=== PATIENT | female | born 1995 | race African-American/Black ===

== ENCOUNTER 2017-08-04 22:04 | Emergency (ER) | payer OTHER ==
[~2017-08-04 22:04] MED LIST: DIVA250T84 PO; DIVA500T98 PO; FLUO-202 PO; MYCO500T28 PO; OXYC-865 PO; RISP0.5T82 PO
--- NOTE | 2017-08-04 23:57 | RADIOLOGY IMAGING REPORT ---
FACILITY: [facility] - [place] PATIENT NAME: Roberta Akbar : 1995 MR: [id number] V: [id number] EXAM DATE: ORDERING PHYSICIAN: BEREKET HAINES TECHNOLOGIST: Location: [facility] Patient: Roberta Akbar : 1995 Visit/Account:[id number] Date of Sevice: 08/04/2017 HIP RIGHT History: Injury COMPARISON: none. FINDINGS: 2 views are provided. No evidence of fracture. Joint spaces and alignment within normal swift its. Soft tissues are unremarkable. IMPRESSION: Negative study. Report Dictated By: Alexis Pascual MD at 08/04/2017 11:51 PM Report E-Signed By: Alexis Pascual MD at 08/04/2017 11:52 PM WSN:[id number]
--- NOTE | 2017-08-05 00:13 | ER Report ---
History and Physical Time Seen By MD: 22:30 Hx. of Stated Complaint: Patient reporting right hip pain related to tripping with crutches earlier today. Patient states that hip initially injured hip about a month ago. HPI/ROS 22 y/o female who says that she lives in [place] but is in town to help a family member move. She was seen in this emergency department approximately one month ago after straining her right knee. She states that she has since seen an orthopedic surgeon about her knee pain, and the surgeon has encouraged her to exercise and take tylenol for pain. She is allergic to NSAIDs. She has been using crutches. She states that earlier this evening she tripped over her crutches, fell onto her right hip, and now has right hip knee and right calf pain. She states that she took 4 extra strength Tylenol and the pain is the same. She is able to ambulate. Remainder of the 14 system rev: Yes Allergies: Coded Allergies: NSAIDS (Non-Steroidal Anti-Inflamma (Verified Allergy, Severe, "THROAT SWELLS UP", 07/13/17) egg (Verified Allergy, Severe, 07/13/17) influenza virus vaccine ts [id number] (36 mos,up) (Verified Allergy, Severe , "HIGH FEVER, SEIZURES", 07/13/17) ALL FLU VACINES, EGG ALLERGY banana (Verified Allergy, Intermediate, SWOLLEN TONGUE, 07/13/17) Home Meds Reported Medications Mycophenolate Mofetil (MYCOPHENOLATE MOFETIL) 500 Mg Tablet, 1000 MG PO BID 07/13/17 Divalproex Sodium (DEPAKOTE) 250 Mg Tablet.dr, 250 MG PO QAM, TAB 07/13/17 Divalproex Sodium (DEPAKOTE) 500 Mg Tablet.dr, 1000 MG PO QDAY, TAB 07/13/17 Fluoxetine Hcl (PROZAC) 20 Mg Capsule, 20 MG PO TID, CAPSULE 07/13/17 Risperidone (RISPERDAL) 0.5 Mg Tablet, 0.5 MG PO QDAY 07/13/17 Discontinued Scripts Oxycodone Hcl/Acetaminophen (PERCOCET 5-325 MG TABLET) 1 Each Tablet, 1 EACH PO Q4-6H Y for PAIN, #12 Prov:KATHERINE DEAN DO 07/13/17 Reviewed Nurses Notes: Yes Old Medical Records Reviewed: Yes Hx Smoking: Yes Smoking Status: Current: Every Day Smoker Hx Substance Use Disorder: Yes Hx Alcohol Use: Yes Constitutional Vital Sign - Last 24 Hours 08/04/17 08/05/17 22:11 00:15 Temp 98.2 Pulse 122 110 Resp 22 14 B/P (MAP) 146/113 140/90 (107) Pulse Ox 98 96 O2 Delivery Room Air Room Air Physical Exam General Appearance: The patient is alert, has no immediate need for airway protection and no current signs of toxicity. Eyes: Pupils equal and round no injection. Respiratory: Chest is non tender, lungs are clear to auscultation. Cardiac: regular rate and rhythm Musculoskeletal: Neck: Neck is supple and non tender. Extremities have full range of motion. No joint effusions. No abrasions, lacerations, or ecchymosis. TTP at the left medial LE. No ligamentous laxity. No swelling Skin: No rashes or lesions. DIFFERENTIAL DIAGNOSIS: After history and physical exam differential diagnosis was considered for fracture, DVT, dislocation, sprain/strain Medical Decision Making EKG/Imaging Imaging X-ray: right hip was obtained. I viewed the images myself on the PACS system. My interpretation of the images is:no fractures or dislocation. No soft tissue swelling. The radiologist interpretation had no clinically significant variation from this interpretation. ED Course/Re-evaluation ED Course This is an otherwise healthy 22-year-old female who presented to the emergency department after tripping over her crutches. She complained of right hip pain after the fall as well as pain in her right calf. She is able to ambulate with pain. She states that she had a ligament strain already, and is being followed by an orthopedist in [place]. She has a normal physical exam. No ligament laxity, no joint effusions, no ecchymosis or abrasions, and no swelling. She does report pain and tenderness to palpation at the soft tissue of her right lower extremity. She has no bony tenderness to palpation. She states that she is allergic to NSAIDs and also states that the Tylenol she took at home has not helped with her pain. I gave her an Lalo wrap for some support of her right knee and right calf. She is asking for something stronger than Tylenol for her pain. I told her that her type of injury did not require narcotic pain medicine, and instead I instructed her to take Tylenol 1 g TID for 5 days. She will continue with her crutches as needed. Decision to Disposition Date: Aug 05, 2017 Decision to Disposition Time: 00:11 Depart Departure Latest Vital Signs Vital Signs Date Time Temp Pulse Resp B/P (MAP) Pulse Ox O2 Delivery O2 Flow Rate FiO2 08/05/17 00:15 110 14 140/90 (107) 96 Room Air 08/04/17 22:11 98.2 Impression: Primary Impression: Muscle strain Condition: Improved Disposition: HOME OR SELF-CARE Patient Instructions: Muscle Strain (ED) Additional Instructions: TAKE 1000 MG OF TYLENOL 3 TIMES A DAY FOR 5 DAYS FOR PAIN. BEREKET HAINES MD Aug 05, 2017 00:13
[2017-08-05 00:15] VITALS: BP 140/90
== END 2017-08-05 00:21 | disposition home or self-care (01) ==
LOC: ER 22:26
DX: S86.911A Strain of unspecified muscle(s) and tendon(s) at lower leg level, right leg, initial encounter (principal)
CPT/HCPCS: 99281

== ENCOUNTER 2017-12-05 12:17 | Emergency (ER) | payer OTHER ==
[2017-12-05] MEDS ORDERED: APAP/HYDROCODONE 325/5 TAB PO ONE (12:25)
--- NOTE | 2017-12-05 12:43 | ER Report ---
History and Physical Time Seen By MD: 12:43 Hx. of Stated Complaint: PATIENT STARTED HAVING BACK PAIN AROUND WEDNESDAY; STATES THAT IT IS ALSO VAGINAL PAIN WELL HPI/ROS CHIEF COMPLAINT: Dysuria, bilateral kidney pain, dyspareunia HISTORY OF PRESENT ILLNESS: Patient is a 16-year-old female who presents emergency department with approximately 3 days now of dysuria and bilateral flank pain and episodes of dyspareunia she also notes some blood in her urine. Patient is not had this prior to . 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 The patient states it stings when she urinates or if she has a bowel movement. REVIEW OF SYSTEMS: Constitutional: No fever, no chills. Gastrointestinal: Bilateral flank pain Genitourinary: Dysuria, hematuria Skin: No rashes. Allergies: Coded Allergies: NSAIDS (Non-Steroidal Anti-Inflamma (Verified Allergy, Severe, "THROAT SWELLS UP", 12/05/17) egg (Verified Allergy, Severe, 12/05/17) influenza virus vaccine ts [id number] (36 mos,up) (Verified Allergy, Severe , "HIGH FEVER, SEIZURES", 12/05/17) ALL FLU VACINES, EGG ALLERGY banana (Verified Allergy, Intermediate, SWOLLEN TONGUE, 12/05/17) Home Meds Active Scripts Hydrocodone Bit/Acetaminophen (HYDROCODON-ACETAMINOPHEN 5-325) 1 Each Tablet, 1 EACH PO Q4-6H Y for PAIN, #12 TAB 0 Refills TAKE ONE TABLET BY MOUTH EVERY 4-6 HOURS NEEDED FOR PAIN Prov:ASHISH MCQUEEN MD 12/05/17 Doxycycline Hyclate (VIBRAMYCIN) 100 Mg Capsule, 100 MG PO BID, #14 CAPSULE Prov:ASHISH MCQUEEN MD 12/05/17 Reported Medications Mycophenolate Mofetil (MYCOPHENOLATE MOFETIL) 500 Mg Tablet, 1000 MG PO BID 07/13/17 Divalproex Sodium (DEPAKOTE) 250 Mg Tablet.dr, 250 MG PO QAM, TAB 07/13/17 Divalproex Sodium (DEPAKOTE) 500 Mg Tablet.dr, 1000 MG PO QDAY, TAB 07/13/17 Fluoxetine Hcl (PROZAC) 20 Mg Capsule, 20 MG PO TID, CAPSULE 07/13/17 Risperidone (RISPERDAL) 0.5 Mg Tablet, 0.5 MG PO QDAY 07/13/17 Past Medical/Surgical History Noncontributory towards this chief complaint Hx Smoking: Yes Smoking Status: Current: Every Day Smoker Hx Substance Use Disorder: Yes Hx Alcohol Use: Yes Constitutional Vital Sign - Last 24 Hours 12/05/17 12/05/17 12/05/17 12/05/17 12:23 12:23 12:30 13:07 Temp 98.0 Pulse 100 Resp 19 B/P (MAP) 144/96 144/96 (112) 127/88 (101) 142/93 (109) Pulse Ox 97 O2 Delivery Room Air Physical Exam General Appearance: The patient is alert, has no immediate need for airway protection and no current signs of toxicity. Respiratory: Chest is non tender, lungs are clear to auscultation. Cardiac: regular rate and rhythm Gastrointestinal: Abdomen is soft and non tender, no masses, bowel sounds normal. exam: Negative for rash. Patient with whitish discharge vaginally. Also some tenderness on internal exam. Skin: No rashes or lesions. Medical Decision Making Data Points Result Diagram: 12/05/17 1240 12/05/17 1240 Laboratory Hematology Test 12/05/17 12:24 12/05/17 12:40 12/05/17 13:06 Urine Color Yellow Urine Clarity Clear Urine pH 7.0 pH (4.8-9.5) Urine Specific [place] 1.015 Urine Protein Negative mg/dL (NEGATIVE) Urine Glucose (UA) Negative mg/dL (NEGATIVE) Urine Ketones Negative mg/dL (NEGATIVE) Urine Blood Negative (NEGATIVE) Urine Nitrite Negative (NEGATIVE) Urine Bilirubin Negative (NEGATIVE) Urine Urobilinogen Negative mg/dL (0.2-1.9) Urine Leukocyte Esterase Negative (NEGATIVE) Urine RBC None /HPF (0-2/HPF) Urine WBC <1 /HPF (0-5/HPF) Urine Squamous Epithelial Cells Many /LPF (</=FEW) Urine Bacteria Negative /HPF (NONE-FEW) Urine Mucus None /HPF (NONE-FEW) Urine HCG, Qualitative Negative (NEGATIVE) Red Blood Count 6.23 M/uL (4.17-5.56) Mean Corpuscular Volume 72.2 fL (80.0-96.0) Mean Corpuscular Hemoglobin 24.4 pg (26.0-33.0) Mean Corpuscular Hemoglobin Concent 33.8 g/dL (32.0-36.0) Red Cell Distribution Width 16.5 % (11.5-14.5) Mean Platelet Volume 8.9 fL (7.2-11.1) Neutrophils (%) (Auto) 68.2 % (39.4-72.5) Lymphocytes (%) (Auto) 21.3 % (17.6-49.6) Monocytes (%) (Auto) 7.5 % (4.1-12.4) Eosinophils (%) (Auto) 2.1 % (0.4-6.7) Basophils (%) (Auto) 0.9 % (0.3-1.4) Nucleated RBC Relative Count (auto) 0.2 /100WBC Neutrophils # (Auto) 6.8 K/uL (2.0-7.4) Lymphocytes # (Auto) 2.1 K/uL (1.3-3.6) Monocytes # (Auto) 0.7 K/uL (0.3-1.0) Eosinophils # (Auto) 0.2 K/uL (0.0-0.5) Basophils # (Auto) 0.1 K/uL (0.0-0.1) Nucleated RBC Absolute Count (auto) 0.02 K/uL Sodium Level 141 mmol/L (137-145) Potassium Level 4.2 mmol/L (3.5-5.0) Chloride Level 104 mmol/L (98-107) Carbon Dioxide Level 24 mmol/L (22-31) Blood Urea Nitrogen 15 mg/dl (7-18) Creatinine 0.80 mg/dl (0.52-1.04) Glomerular Filtration Rate Calc > 60.0 Random Glucose 96 mg/dl (75-110) Calcium Level 10.3 mg/dl (8.4-10.2) Chemistry Test 12/05/17 12:24 12/05/17 12:40 12/05/17 13:06 Urine Color Yellow Urine Clarity Clear Urine pH 7.0 pH (4.8-9.5) Urine Specific [place] 1.015 Urine Protein Negative mg/dL (NEGATIVE) Urine Glucose (UA) Negative mg/dL (NEGATIVE) Urine Ketones Negative mg/dL (NEGATIVE) Urine Blood Negative (NEGATIVE) Urine Nitrite Negative (NEGATIVE) Urine Bilirubin Negative (NEGATIVE) Urine Urobilinogen Negative mg/dL (0.2-1.9) Urine Leukocyte Esterase Negative (NEGATIVE) Urine RBC None /HPF (0-2/HPF) Urine WBC <1 /HPF (0-5/HPF) Urine Squamous Epithelial Cells Many /LPF (</=FEW) Urine Bacteria Negative /HPF (NONE-FEW) Urine Mucus None /HPF (NONE-FEW) Urine HCG, Qualitative Negative (NEGATIVE) White Blood Count 9.9 k/uL (4.5-11.0) Red Blood Count 6.23 M/uL (4.17-5.56) Hemoglobin 15.2 g/dL (12.0-16.0) Hematocrit 45.0 % (34.0-47.0) Mean Corpuscular Volume 72.2 fL (80.0-96.0) Mean Corpuscular Hemoglobin 24.4 pg (26.0-33.0) Mean Corpuscular Hemoglobin Concent 33.8 g/dL (32.0-36.0) Red Cell Distribution Width 16.5 % (11.5-14.5) Platelet Count 252 K/uL (150-450) Mean Platelet Volume 8.9 fL (7.2-11.1) Neutrophils (%) (Auto) 68.2 % (39.4-72.5) Lymphocytes (%) (Auto) 21.3 % (17.6-49.6) Monocytes (%) (Auto) 7.5 % (4.1-12.4) Eosinophils (%) (Auto) 2.1 % (0.4-6.7) Basophils (%) (Auto) 0.9 % (0.3-1.4) Nucleated RBC Relative Count (auto) 0.2 /100WBC Neutrophils # (Auto) 6.8 K/uL (2.0-7.4) Lymphocytes # (Auto) 2.1 K/uL (1.3-3.6) Monocytes # (Auto) 0.7 K/uL (0.3-1.0) Eosinophils # (Auto) 0.2 K/uL (0.0-0.5) Basophils # (Auto) 0.1 K/uL (0.0-0.1) Nucleated RBC Absolute Count (auto) 0.02 K/uL Glomerular Filtration Rate Calc > 60.0 Calcium Level 10.3 mg/dl (8.4-10.2) Urinalysis Test 12/05/17 12:24 Urine Color Yellow Urine Clarity Clear Urine pH 7.0 pH (4.8-9.5) Urine Specific [place] 1.015 Urine Protein Negative mg/dL (NEGATIVE) Urine Glucose (UA) Negative mg/dL (NEGATIVE) Urine Ketones Negative mg/dL (NEGATIVE) Urine Blood Negative (NEGATIVE) Urine Nitrite Negative (NEGATIVE) Urine Bilirubin Negative (NEGATIVE) Urine Urobilinogen Negative mg/dL (0.2-1.9) Urine Leukocyte Esterase Negative (NEGATIVE) Urine RBC None /HPF (0-2/HPF) Urine WBC <1 /HPF (0-5/HPF) Urine Squamous Epithelial Cells Many /LPF (</=FEW) Urine Bacteria Negative /HPF (NONE-FEW) Urine Mucus None /HPF (NONE-FEW) Urine HCG, Qualitative Negative (NEGATIVE) ED Course/Re-evaluation ED Course 12/05/2017 1:00:32 pm plan at this time will be to place an IV we will give IV pain medication check CBC electrolytes and perform a pelvic exam. Decision to Disposition Date: December 05, 2017 Decision to Disposition Time: 14:09 Depart Departure Latest Vital Signs Vital Signs Date Time Temp Pulse Resp B/P (MAP) Pulse Ox O2 Delivery O2 Flow Rate FiO2 12/05/17 13:07 142/93 (109) 12/05/17 12:23 98.0 100 19 97 Room Air Impression: Primary Impression: Cervicitis Condition: Improved Disposition: HOME OR SELF-CARE New Scripts Hydrocodone Bit/Acetaminophen (HYDROCODON-ACETAMINOPHEN 5-325) 1 Each Tablet 1 EACH PO Q4-6H Y for PAIN, #12 TAB 0 Refills TAKE ONE TABLET BY MOUTH EVERY 4-6 HOURS NEEDED FOR PAIN Prov: ASHISH MCQUEEN MD 12/05/17 Doxycycline Hyclate (VIBRAMYCIN) 100 Mg Capsule 100 MG PO BID, #14 CAPSULE Prov: ASHISH MCQUEEN MD 12/05/17 Patient Instructions: Cervicitis (DC) Additional Instructions: Follow-up with your [facility] in [place] is scheduled on Wednesday. Take your antibiotics as directed. ASHISH MCQUEEN MD December 05, 2017 12:43
[2017-12-05 12:56] LABS: PLATELET COUNT, AUTOMATED 252 K/uL (150-450)
[2017-12-05] MEDS ORDERED: fentaNYL CITR 100 MCG/2 ML AMP IVP ONE (13:05)
[2017-12-05 13:07] VITALS: BP 142/93
[2017-12-05] MEDS ORDERED: DOXY-1 PO (13:12)
[2017-12-05] MEDS ORDERED: LOR5/325 PO (13:12)
[2017-12-05] MEDS ORDERED: cefTRIAXone 250 MG VIAL IVP ONE (13:15)
== END 2017-12-05 13:44 | disposition home or self-care (01) ==
LOC: ER 12:25
DX: N72 Inflammatory disease of cervix uteri (principal)
CPT/HCPCS: 81001; 81025; 85025; 87088; 87491; 87591; 96374; 96375; 99283; J0696; J3010; 82310; 82374; 82435; 82565; 82947; 84132; 84295; 84520

== ENCOUNTER 2018-01-20 12:59 | Emergency (ER) | payer OTHER ==
[~2018-01-20 12:59] MED LIST changes: +DOXY-1 PO; +LOR5/325 PO
--- NOTE | 2018-01-20 13:13 | ER Report ---
History and Physical Time Seen By MD: 13:13 Hx. of Stated Complaint: patient reports right lower abdominal pain and bilateral flank pain for the last 3 days HPI/ROS Chief Complaint: "abdominal and back pain" HPI: 22-year-old presents with her fiance. The patient is the primary historian. The patient reports, constant abdominal pain that radiates posteriorly on the right side and describes this pain as "kidney pain." She has had associated nausea for four days and decreased appetite. Heating pad and Tylenol has not improved the pain. ROS: Constitutional: denies fevers, night sweats or chills HEENT: denies headache, change in vision, denies cough or sore throat Respiratory: denies difficulty breathing CV: denies chest pain GI/: reports right lower quadrant pain, reports right, posterior, thoracic pain Allergies: Coded Allergies: NSAIDS (Non-Steroidal Anti-Inflamma (Verified Allergy, Severe, "THROAT SWELLS UP", 12/05/17) egg (Verified Allergy, Severe, 12/05/17) influenza virus vaccine ts [id number] (36 mos,up) (Verified Allergy, Severe , "HIGH FEVER, SEIZURES", 12/05/17) ALL FLU VACINES, EGG ALLERGY banana (Verified Allergy, Intermediate, SWOLLEN TONGUE, 12/05/17) Home Meds Active Scripts Hydrocodone Bit/Acetaminophen (HYDROCODON-ACETAMINOPHEN 5-325) 1 Each Tablet, 1 EACH PO Q4-6H Y for PAIN for 3 Days, #10 TAB Prov:ISACC RIVERA [facility] 01/20/18 Ondansetron (ZOFRAN ODT) 4 Mg Tab.rapdis, 4 MG PO Q6H Y for NAUSEA/VOMITING for 5 Days, #20 TAB.BRITTANY Prov:ISACC RIVERA [facility] 01/20/18 Reported Medications Mycophenolate Mofetil (MYCOPHENOLATE MOFETIL) 500 Mg Tablet, 1000 MG PO BID 07/13/17 Divalproex Sodium (DEPAKOTE) 250 Mg Tablet.dr, 250 MG PO QAM, TAB 07/13/17 Divalproex Sodium (DEPAKOTE) 500 Mg Tablet.dr, 1000 MG PO QDAY, TAB 07/13/17 Fluoxetine Hcl (PROZAC) 20 Mg Capsule, 20 MG PO TID, CAPSULE 07/13/17 Risperidone (RISPERDAL) 0.5 Mg Tablet, 0.5 MG PO QDAY 07/13/17 Discontinued Scripts Hydrocodone Bit/Acetaminophen (HYDROCODON-ACETAMINOPHEN 5-325) 1 Each Tablet, 1 EACH PO Q4-6H Y for PAIN, #12 TAB 0 Refills TAKE ONE TABLET BY MOUTH EVERY 4-6 HOURS NEEDED FOR PAIN Prov:ASHISH MCQUEEN MD 12/05/17 Doxycycline Hyclate (VIBRAMYCIN) 100 Mg Capsule, 100 MG PO BID, #14 CAPSULE Prov:ASHISH MCQUEEN MD 12/05/17 Past Medical/Surgical History fibromyalgia, scoliosis, vaginal delivery, laparoscopic cholecystectomy, laparoscopic oophorectomy, transvaginal hysterectomy Hx Smoking: Yes Smoking Status: Current: Every Day Smoker Hx Substance Use Disorder: Yes Hx Alcohol Use: Yes Constitutional Vital Sign - Last 24 Hours 01/20/18 01/20/18 01/20/18 01/20/18 13:04 13:06 13:29 13:40 Temp 97.3 Pulse 106 105 Resp 20 B/P (MAP) 143/103 143/103 (116) 121/99 (106) Pulse Ox 95 96 O2 Delivery Room Air 01/20/18 01/20/18 01/20/18 01/20/18 14:06 14:29 14:30 14:35 Pulse 103 101 B/P (MAP) 137/83 (101) 118/94 (102) Pulse Ox 96 93 01/20/18 01/20/18 01/20/18 01/20/18 14:49 15:00 15:05 15:26 Pulse 108 B/P (MAP) 126/82 (97) 124/84 (97) 130/83 (99) Pulse Ox 96 Intake and Output 01/20/18 01/20/18 01/21/18 15:00 23:00 07:00 Intake Total 1000 ml Balance 1000 ml Physical Exam General: 22-year-old female in no acute distress HEENT: normocephalic, atraumatic Respiratory: BL equal respiratory excursion, CTA BL CV: PMI in left sternal boarder, Clear S1 S2, no murmurs GI/: normoactive BS x 4, right lower quadrant pain on palpation, no CVA tenderness Musculoskeletal: moves all extremities Neuro: alert and oriented x 4, interactive Differential diagnoses: UTI, pyelonephritis, appendicitis, diverticulitis, gastroenteritis Medical Decision Making Data Points Result Diagram: 01/20/18 1324 01/20/18 1324 Laboratory Hematology Test 01/20/18 13:03 01/20/18 13:24 Urine Color Yellow Urine Clarity Clear Urine pH 7.0 pH (4.8-9.5) Urine Specific [place] 1.019 Urine Protein Negative mg/dL (NEGATIVE) Urine Glucose (UA) Negative mg/dL (NEGATIVE) Urine Ketones Negative mg/dL (NEGATIVE) Urine Blood Negative (NEGATIVE) Urine Nitrite Negative (NEGATIVE) Urine Bilirubin Negative (NEGATIVE) Urine Urobilinogen 2.0 mg/dL (0.2-1.9) Urine Leukocyte Esterase Negative (NEGATIVE) Urine RBC None /HPF (0-2/HPF) Urine WBC <1 /HPF (0-5/HPF) Urine Squamous Epithelial Cells Moderate /LPF (</=FEW) Urine Bacteria Negative /HPF (NONE-FEW) Urine Mucus None /HPF (NONE-FEW) Red Blood Count 6.64 M/uL (4.17-5.56) Mean Corpuscular Volume 71.2 fL (80.0-96.0) Mean Corpuscular Hemoglobin 23.8 pg (26.0-33.0) Mean Corpuscular Hemoglobin Concent 33.5 g/dL (32.0-36.0) Red Cell Distribution Width 17.1 % (11.5-14.5) Mean Platelet Volume 8.6 fL (7.2-11.1) Neutrophils (%) (Auto) 71.8 % (39.4-72.5) Lymphocytes (%) (Auto) 17.8 % (17.6-49.6) Monocytes (%) (Auto) 8.0 % (4.1-12.4) Eosinophils (%) (Auto) 2.1 % (0.4-6.7) Basophils (%) (Auto) 0.3 % (0.3-1.4) Nucleated RBC Relative Count (auto) 0.1 /100WBC Neutrophils # (Auto) 9.1 K/uL (2.0-7.4) Lymphocytes # (Auto) 2.3 K/uL (1.3-3.6) Monocytes # (Auto) 1.0 K/uL (0.3-1.0) Eosinophils # (Auto) 0.3 K/uL (0.0-0.5) Basophils # (Auto) 0.0 K/uL (0.0-0.1) Nucleated RBC Absolute Count (auto) 0.01 K/uL Peripheral Blood Smear Y/N Sodium Level 141 mmol/L (137-145) Potassium Level 3.8 mmol/L (3.5-5.0) Chloride Level 103 mmol/L (98-107) Carbon Dioxide Level 26 mmol/L (22-31) Blood Urea Nitrogen 14 mg/dl (7-18) Creatinine 0.90 mg/dl (0.52-1.04) Glomerular Filtration Rate Calc > 60.0 Random Glucose 96 mg/dl (75-110) Calcium Level 9.8 mg/dl (8.4-10.2) Total Bilirubin 0.5 mg/dl (0.2-1.3) Aspartate Amino Transf (AST/SGOT) 43 U/L (0-35) Alanine Aminotransferase (ALT/SGPT) 20 U/L (0-56) Alkaline Phosphatase 69 U/L (0-126) Total Protein 8.0 g/dl (6.3-8.2) Albumin 4.6 g/dl (3.5-5.0) Chemistry Test 01/20/18 13:03 01/20/18 13:24 Urine Color Yellow Urine Clarity Clear Urine pH 7.0 pH (4.8-9.5) Urine Specific [place] 1.019 Urine Protein Negative mg/dL (NEGATIVE) Urine Glucose (UA) Negative mg/dL (NEGATIVE) Urine Ketones Negative mg/dL (NEGATIVE) Urine Blood Negative (NEGATIVE) Urine Nitrite Negative (NEGATIVE) Urine Bilirubin Negative (NEGATIVE) Urine Urobilinogen 2.0 mg/dL (0.2-1.9) Urine Leukocyte Esterase Negative (NEGATIVE) Urine RBC None /HPF (0-2/HPF) Urine WBC <1 /HPF (0-5/HPF) Urine Squamous Epithelial Cells Moderate /LPF (</=FEW) Urine Bacteria Negative /HPF (NONE-FEW) Urine Mucus None /HPF (NONE-FEW) White Blood Count 12.7 k/uL (4.5-11.0) Red Blood Count 6.64 M/uL (4.17-5.56) Hemoglobin 15.8 g/dL (12.0-16.0) Hematocrit 47.3 % (34.0-47.0) Mean Corpuscular Volume 71.2 fL (80.0-96.0) Mean Corpuscular Hemoglobin 23.8 pg (26.0-33.0) Mean Corpuscular Hemoglobin Concent 33.5 g/dL (32.0-36.0) Red Cell Distribution Width 17.1 % (11.5-14.5) Platelet Count 247 K/uL (150-450) Mean Platelet Volume 8.6 fL (7.2-11.1) Neutrophils (%) (Auto) 71.8 % (39.4-72.5) Lymphocytes (%) (Auto) 17.8 % (17.6-49.6) Monocytes (%) (Auto) 8.0 % (4.1-12.4) Eosinophils (%) (Auto) 2.1 % (0.4-6.7) Basophils (%) (Auto) 0.3 % (0.3-1.4) Nucleated RBC Relative Count (auto) 0.1 /100WBC Neutrophils # (Auto) 9.1 K/uL (2.0-7.4) Lymphocytes # (Auto) 2.3 K/uL (1.3-3.6) Monocytes # (Auto) 1.0 K/uL (0.3-1.0) Eosinophils # (Auto) 0.3 K/uL (0.0-0.5) Basophils # (Auto) 0.0 K/uL (0.0-0.1) Nucleated RBC Absolute Count (auto) 0.01 K/uL Peripheral Blood Smear Y/N Glomerular Filtration Rate Calc > 60.0 Calcium Level 9.8 mg/dl (8.4-10.2) Total Bilirubin 0.5 mg/dl (0.2-1.3) Aspartate Amino Transf (AST/SGOT) 43 U/L (0-35) Alanine Aminotransferase (ALT/SGPT) 20 U/L (0-56) Alkaline Phosphatase 69 U/L (0-126) Total Protein 8.0 g/dl (6.3-8.2) Albumin 4.6 g/dl (3.5-5.0) Urinalysis Test 01/20/18 13:03 Urine Color Yellow Urine Clarity Clear Urine pH 7.0 pH (4.8-9.5) Urine Specific [place] 1.019 Urine Protein Negative mg/dL (NEGATIVE) Urine Glucose (UA) Negative mg/dL (NEGATIVE) Urine Ketones Negative mg/dL (NEGATIVE) Urine Blood Negative (NEGATIVE) Urine Nitrite Negative (NEGATIVE) Urine Bilirubin Negative (NEGATIVE) Urine Urobilinogen 2.0 mg/dL (0.2-1.9) Urine Leukocyte Esterase Negative (NEGATIVE) Urine RBC None /HPF (0-2/HPF) Urine WBC <1 /HPF (0-5/HPF) Urine Squamous Epithelial Cells Moderate /LPF (</=FEW) Urine Bacteria Negative /HPF (NONE-FEW) Urine Mucus None /HPF (NONE-FEW) EKG/Imaging Imaging CT abdomen and pelvis with IV contrast Indication: Right sided abdomen pain Comparison: None.. Technique: Axial CT images were obtained through the abdomen and pelvis during injection of nonionic iodinated intravenous contrast. Reformatted coronal and sagittal images were also obtained. One of the following dose optimization techniques was utilized in the performance of this exam: Automated exposure control; adjustment of the mA and/ or kV according to the patient's size; or use of an iterative reconstruction technique. Specific details can be referenced in the facility's radiology CT exam operational policy. Contrast: 80 ml of Isovue-370 IV contrast. Findings: Lower lung pike: Limited views lower lung field are unremarkable. Liver: No focal parenchymal abnormality of the liver. Biliary: Status post cholecystectomy. The biliary system is unremarkable. Pancreas: Normal appearance. Spleen: Normal appearance. Adrenal glands: Unremarkable. Kidneys / retroperitoneum: No evidence of nephrolithiasis or hydronephrosis. No focal abnormality. Bowel / peritoneum / mesenteries: The colon shows no focal abnormality. The appendix is normal. Small bowel shows no focal abnormality or obstruction. The stomach is mainly decompressed and grossly normal. No free air, free fluid, fluid collections or areas of inflammation. Small umbilical hernia containing fat. Lymph node assessment: No pathologic adenopathy identified. Pelvic structures: The uterus is not visualized and may have been surgically removed. The remaining pelvic structures visualized within normal limits. Vessels: No significant atherosclerotic calcifications seen throughout a nonaneurysmal abdominal aorta and branches. Musculoskeletal / Body wall: No acute or aggressive osseous abnormality. There are couple bone islands scattered throughout the bony pelvis. 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 IMPRESSION: 1. No acute intra-abdominal abnormality 2. 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 Report Dictated By: Justo Rendon at 01/20/2018 2:36 PM Report E-Signed By: Justo eRndon at 01/20/2018 2:42 PM ED Course/Re-evaluation ED Course 22-year-old female presents to the emergency department with right lower quadrant pain that radiates posteriorly. She reports the pain as "kidney pain" on the right side. History and physical examination were obtained. The patient states she has been very nauseous and has no appetite and her pain is a 9.5 out of 10. 1000mls of NS, morphine, and Zofran administered in the ER today. CBC, CMP, UA, and CT of the abdomen were obtained. The laboratory findings and CT of the abdomen do not identify a clear etiology of her pain. She does have some mildly elevated liver enzymes and she has been encouraged to follow up with her primary care provider for further evaluation. At this time, we will treat her symptoms of nausea and pain and have her follow up with her primary care provider by Wednesday. Decision to Disposition Date: Jan 20, 2018 Decision to Disposition Time: 15:35 Depart Departure Latest Vital Signs Vital Signs Date Time Temp Pulse Resp B/P (MAP) Pulse Ox O2 Delivery O2 Flow Rate FiO2 01/20/18 15:26 130/83 (99) 01/20/18 15:05 108 96 01/20/18 13:04 97.3 20 Room Air Impression: Primary Impression: Abdominal pain Condition: Improved Disposition: HOME OR SELF-CARE New Scripts Hydrocodone Bit/Acetaminophen (HYDROCODON-ACETAMINOPHEN 5-325) 1 Each Tablet 1 EACH PO Q4-6H Y for PAIN for 3 Days, #10 TAB Prov: ISACC RIVERA 01/20/18 Ondansetron (ZOFRAN ODT) 4 Mg Tab.rapdis 4 MG PO Q6H Y for NAUSEA/VOMITING for 5 Days, #20 TAB.BRITTANY Prov: ISACC RIVERA 01/20/18 Patient Instructions: Abdominal Pain (ED) Additional Instructions: You make take Zofran for nausea and Tylenol as needed for pain but avoid taken more than 4 grams per day of Tylenol. Take hydrocodone for severe pain as needed every 6 hours. Follow up with your primary care provider within the week. Return to the Emergency Department if your condition worsens. Problem Qualifiers Primary Impression: Abdominal pain Abdominal location: right lower quadrant Qualified Codes: R10.31 - Right lower quadrant pain ISACC RIVERA Jan 20, 2018 13:13
[2018-01-20] MEDS ORDERED: ONDANSETRON 4 MG/2 ML VIAL IVP ONE (13:30)
[2018-01-20] MEDS ORDERED: NS(*) 0.9% 1000 ML BAG 1,000 ML IV ONE (13:30)
[2018-01-20 13:41] LABS: PLATELET COUNT, AUTOMATED 247 K/uL (150-450)
[2018-01-20] MEDS ORDERED: MORPHINE 4 MG/ML SDV IVP ONE (13:45)
[2018-01-20] MEDS ORDERED: IOPAMIDOL 76% 100 ML INFUS BTL 100 ML ONE (13:46)
--- NOTE | 2018-01-20 15:23 | RADIOLOGY IMAGING REPORT ---
FACILITY: [facility] PATIENT NAME: Roberta Akbar : 1995 MR: [id number] V: [id number] EXAM DATE: ORDERING PHYSICIAN: ISACC RIVERA TECHNOLOGIST: Location: [facility] [place] Patient: Roberta Akbar : 1995 Visit/Account:[id number] Date of Sevice: 01/20/2018 CT abdomen and pelvis with IV contrast Indication: Right sided abdomen pain Comparison: None.. Technique: Axial CT images were obtained through the abdomen and pelvis during injection of nonioni c iodinated intravenous contrast. Reformatted coronal and sagittal images were also obtained. One of the following dose optimization techniques was utilized in the performance of this exam: Autom ated exposure control; adjustment of the mA and/or kV according to the patient's size; or use of an i terative reconstruction technique. Specific details can be referenced in the facility's radiology C T exam operational policy. Contrast: 80 ml of Isovue-370 IV contrast. Findings: Lower lung pike: Limited views lower lung field are unremarkable. Liver: No focal parenchymal abnormality of the liver. Biliary: Status post cholecystectomy. The biliary system is unremarkable. Pancreas: Normal appearance. Spleen: Normal appearance. Adrenal glands: Unremarkable. Kidneys / retroperitoneum: No evidence of nephrolithiasis or hydronephrosis. No focal abnormality. Bowel / peritoneum / mesenteries: The colon shows no focal abnormality. The appendix is normal. Small bowel shows no focal abnormality or obstruction. The stomach is mainly decompressed and grossly norm al. No free air, free fluid, fluid collections or areas of inflammation. Small umbilical hernia containin g fat. Lymph node assessment: No pathologic adenopathy identified. Pelvic structures: The uterus is not visualized and may have been surgically removed. The remainin g pelvic structures visualized within normal limits. Vessels: No significant atherosclerotic calcifications seen throughout a nonaneurysmal abdominal aort a and branches. Musculoskeletal / Body wall: No acute or aggressive osseous abnormality. There are couple bone island s scattered throughout the bony pelvis. 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 IMPRESSION: 1. No acute intra-abdominal abnormality 2. 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 Report Dictated By: Justo Rendon at 01/20/2018 2:36 PM Report E-Signed By: Justo Rendon at 01/20/2018 2:42 PM WSN:[id number]
[2018-01-20] MEDS ORDERED: HYDR-385 PO (15:25)
[2018-01-20] MEDS ORDERED: ONDA4TAB PO (15:25)
[2018-01-20 15:26] VITALS: BP 130/83
== END 2018-01-20 15:46 | disposition home or self-care (01) ==
LOC: ER 13:00
DX: R10.31 Right lower quadrant pain (principal)
CPT/HCPCS: 74177; 81001; 85025; 96361; 96374; 96375; 99284; J2270; J2405; J7030; Q9967; 82040; 82247; 82310; 82374; 82435; 82565; 82947; 84075; 84132; 84155; 84295; 84450; 84460; 84520; 99283

== ENCOUNTER 2018-01-28 15:58 | Emergency (ER) | payer OTHER ==
[~2018-01-28 15:58] MED LIST changes: +HYDR-385 PO; +ONDA4TAB PO
[2018-01-28] MEDS ORDERED: FAMOTIDINE(*) 20MG/50ML PREMIX 50 ML IVPB ONE (16:11)
[2018-01-28] MEDS ORDERED: NS(*) 0.9% 1000 ML BAG 1,000 ML IV ONE (16:11)
[2018-01-28] MEDS ORDERED: SUCR1TAB85 PO (16:11)
[2018-01-28] MEDS ORDERED: OMEP-125 PO (16:12)
[2018-01-28] MEDS ORDERED: ONDANSETRON 4 MG/2 ML VIAL IVP ONE (16:15)
[2018-01-28 17:19] LABS: PLATELET COUNT, AUTOMATED 185 K/uL (150-450)
[2018-01-28] MEDS ORDERED: ACETAMINOPHEN 325 MG TAB PO ONE (17:50)
[2018-01-28] MEDS ORDERED: ONDA4TAB PO (18:04)
--- NOTE | 2018-01-28 18:06 | ER Report ---
History and Physical Time Seen By MD: 16:05 Hx. of Stated Complaint: PT IS HAVING RIGHT SIDED ABDOMINAL PAIN THAT RADIATE DOWN. PT WAS AT [facility] YESTERDAY, WAS TOLD SHE HAS ULCERS WAS PRESCRIBED CARAFATE AND TOLD TO INCREASE HER ANTIACID. PT STARTED VOMMITING TODAY AND DECIDED TO COME INTO THE ER. HPI/ROS CHIEF COMPLAINT: Abdominal pain HISTORY OF PRESENT ILLNESS: Patient is a 22-year-old female who presents the ED with complaint of epigastric pain that she has had for the past 3-4 weeks. She states that she was seen at this emergency department last week for this and was given some pain medication. She states that she was seen at the [facility] emergency department yesterday and was given Pepcid and Carafate. She states that she was set up to see gastroenterology as well. She states she has been having trouble keeping her Pepcid and Carafate down due to her nausea. She denies any diarrhea. She has not noted any fever. She states that she has a history of gastric ulcers in the past and is concerned about this. She did have an abdominal pelvis CT completed at her emergency room visit last week at this emergency Department. This did not reveal any acute findings. REVIEW OF SYSTEMS: Constitutional: No fever, no chills. Cardiovascular: No chest pain, no palpitations. Respiratory: No cough, no shortness of breath. Gastrointestinal: See history of present illness. Genitourinary: No hematuria. Musculoskeletal: No back pain. Skin: No rashes. Neurological: No headache. Allergies: Coded Allergies: NSAIDS (Non-Steroidal Anti-Inflamma (Verified Allergy, Severe, "THROAT SWELLS UP", 12/05/17) egg (Verified Allergy, Severe, 12/05/17) influenza virus vaccine ts [id number] (36 mos,up) (Verified Allergy, Severe , "HIGH FEVER, SEIZURES", 12/05/17) ALL FLU VACINES, EGG ALLERGY banana (Verified Allergy, Intermediate, SWOLLEN TONGUE, 12/05/17) Home Meds Active Scripts Ondansetron (ZOFRAN ODT) 4 Mg Tab.rapdis, 4 MG PO Q6H Y for NAUSEA/VOMITING, # 12 TAB.BRITTANY Prov:LICO ESQUEDA PA-C 01/28/18 Hydrocodone Bit/Acetaminophen (HYDROCODON-ACETAMINOPHEN 5-325) 1 Each Tablet, 1 EACH PO Q4-6H Y for PAIN for 3 Days, #10 TAB Prov:ISACC RIVERA [employer] 01/20/18 Ondansetron (ZOFRAN ODT) 4 Mg Tab.rapdis, 4 MG PO Q6H Y for NAUSEA/VOMITING for 5 Days, #20 TAB.BRITTANY Prov:ISACC RIVERA [employer] 01/20/18 Reported Medications Omeprazole (OMEPRAZOLE) 20 Mg Capsule.dr, 1 CAP PO BID, CAP 01/28/18 Sucralfate (CARAFATE) 1 Gm Tablet, 1 GM PO TID 01/28/18 Mycophenolate Mofetil (MYCOPHENOLATE MOFETIL) 500 Mg Tablet, 1000 MG PO BID 07/13/17 Divalproex Sodium (DEPAKOTE) 250 Mg Tablet.dr, 250 MG PO QAM, TAB 07/13/17 Divalproex Sodium (DEPAKOTE) 500 Mg Tablet.dr, 1000 MG PO QDAY, TAB 07/13/17 Fluoxetine Hcl (PROZAC) 20 Mg Capsule, 20 MG PO TID, CAPSULE 07/13/17 Risperidone (RISPERDAL) 0.5 Mg Tablet, 0.5 MG PO QDAY 07/13/17 Reviewed Nurses Notes: Yes Old Medical Records Reviewed: Yes Hx Smoking: Yes Smoking Status: Current: Every Day Smoker Hx Substance Use Disorder: Yes Hx Alcohol Use: Yes Constitutional Vital Sign - Last 24 Hours 01/28/18 01/28/18 01/28/18 01/28/18 16:03 18:16 18:47 20:01 Temp 97.8 98.0 Pulse 120 110 101 101 Resp 18 18 16 B/P (MAP) 141/87 124/83 (97) 106/62 (77) 123/85 (98) Pulse Ox 94 95 96 O2 Delivery Room Air Room Air Room Air Intake and Output 01/28/18 01/28/18 01/29/18 15:00 23:00 07:00 Intake Total 1050 ml Balance 1050 ml Physical Exam General Appearance: The patient is alert, has no immediate need for airway protection and no signs of toxicity. Patient appears to be in no acute distress. Eyes: Pupils equal and round no pallor or injection. ENT, Mouth: Mucous membranes are moist. Respiratory: There are no retractions, lungs are clear to auscultation. Cardiovascular: Regular rate and rhythm. Gastrointestinal: There is some epigastric tenderness with palpation. Normal bowel sounds in all 4 quadrants. No rebound or guarding is present. Skin: Warm and dry, no rashes. Musculoskeletal: Neck is supple non tender. Extremities are nontender, nonswollen and have full range of motion. DIFFERENTIAL DIAGNOSIS: After history and physical exam differential diagnosis was considered for abdominal pain including but not limited to appendicitis, cholecystitis, gastritis and urinary tract infection. Medical Decision Making Data Points Result Diagram: 01/28/18 1713 01/28/18 1713 Laboratory Hematology Test 01/28/18 16:04 01/28/18 17:13 Urine Color Yellow Urine Clarity Clear Urine pH 6.0 pH (4.8-9.5) Urine Specific [place] 1.023 Urine Protein Negative mg/dL (NEGATIVE) Urine Glucose (UA) Negative mg/dL (NEGATIVE) Urine Ketones Negative mg/dL (NEGATIVE) Urine Blood Negative (NEGATIVE) Urine Nitrite Negative (NEGATIVE) Urine Bilirubin Negative (NEGATIVE) Urine Urobilinogen Negative mg/dL (0.2-1.9) Urine Leukocyte Esterase Negative (NEGATIVE) Urine RBC None /HPF (0-2/HPF) Urine WBC <1 /HPF (0-5/HPF) Urine Squamous Epithelial Cells Many /LPF (</=FEW) Urine Bacteria Negative /HPF (NONE-FEW) Urine Mucus Few /HPF (NONE-FEW) Red Blood Count 6.37 M/uL (4.17-5.56) Mean Corpuscular Volume 72.0 fL (80.0-96.0) Mean Corpuscular Hemoglobin 24.1 pg (26.0-33.0) Mean Corpuscular Hemoglobin Concent 33.5 g/dL (32.0-36.0) Red Cell Distribution Width 17.6 % (11.5-14.5) Mean Platelet Volume 9.1 fL (7.2-11.1) Neutrophils (%) (Auto) 72.2 % (39.4-72.5) Lymphocytes (%) (Auto) 15.7 % (17.6-49.6) Monocytes (%) (Auto) 9.4 % (4.1-12.4) Eosinophils (%) (Auto) 1.6 % (0.4-6.7) Basophils (%) (Auto) 1.1 % (0.3-1.4) Nucleated RBC Relative Count (auto) 0.1 /100WBC Neutrophils # (Auto) 8.8 K/uL (2.0-7.4) Lymphocytes # (Auto) 1.9 K/uL (1.3-3.6) Monocytes # (Auto) 1.1 K/uL (0.3-1.0) Eosinophils # (Auto) 0.2 K/uL (0.0-0.5) Basophils # (Auto) 0.1 K/uL (0.0-0.1) Nucleated RBC Absolute Count (auto) 0.01 K/uL Peripheral Blood Smear Y/N Sodium Level 141 mmol/L (137-145) Potassium Level 4.1 mmol/L (3.5-5.0) Chloride Level 105 mmol/L (98-107) Carbon Dioxide Level 25 mmol/L (22-31) Blood Urea Nitrogen 14 mg/dl (7-18) Creatinine 0.80 mg/dl (0.52-1.04) Glomerular Filtration Rate Calc > 60.0 Random Glucose 82 mg/dl (75-110) Calcium Level 9.4 mg/dl (8.4-10.2) Total Bilirubin 0.4 mg/dl (0.2-1.3) Aspartate Amino Transf (AST/SGOT) 18 U/L (0-35) Alanine Aminotransferase (ALT/SGPT) 27 U/L (0-56) Alkaline Phosphatase 52 U/L (0-126) Total Protein 7.4 g/dl (6.3-8.2) Albumin 4.1 g/dl (3.5-5.0) Lipase 56 U/L (23-300) Chemistry Test 01/28/18 16:04 01/28/18 17:13 Urine Color Yellow Urine Clarity Clear Urine pH 6.0 pH (4.8-9.5) Urine Specific [place] 1.023 Urine Protein Negative mg/dL (NEGATIVE) Urine Glucose (UA) Negative mg/dL (NEGATIVE) Urine Ketones Negative mg/dL (NEGATIVE) Urine Blood Negative (NEGATIVE) Urine Nitrite Negative (NEGATIVE) Urine Bilirubin Negative (NEGATIVE) Urine Urobilinogen Negative mg/dL (0.2-1.9) Urine Leukocyte Esterase Negative (NEGATIVE) Urine RBC None /HPF (0-2/HPF) Urine WBC <1 /HPF (0-5/HPF) Urine Squamous Epithelial Cells Many /LPF (</=FEW) Urine Bacteria Negative /HPF (NONE-FEW) Urine Mucus Few /HPF (NONE-FEW) White Blood Count 12.2 k/uL (4.5-11.0) Red Blood Count 6.37 M/uL (4.17-5.56) Hemoglobin 15.4 g/dL (12.0-16.0) Hematocrit 45.9 % (34.0-47.0) Mean Corpuscular Volume 72.0 fL (80.0-96.0) Mean Corpuscular Hemoglobin 24.1 pg (26.0-33.0) Mean Corpuscular Hemoglobin Concent 33.5 g/dL (32.0-36.0) Red Cell Distribution Width 17.6 % (11.5-14.5) Platelet Count 185 K/uL (150-450) Mean Platelet Volume 9.1 fL (7.2-11.1) Neutrophils (%) (Auto) 72.2 % (39.4-72.5) Lymphocytes (%) (Auto) 15.7 % (17.6-49.6) Monocytes (%) (Auto) 9.4 % (4.1-12.4) Eosinophils (%) (Auto) 1.6 % (0.4-6.7) Basophils (%) (Auto) 1.1 % (0.3-1.4) Nucleated RBC Relative Count (auto) 0.1 /100WBC Neutrophils # (Auto) 8.8 K/uL (2.0-7.4) Lymphocytes # (Auto) 1.9 K/uL (1.3-3.6) Monocytes # (Auto) 1.1 K/uL (0.3-1.0) Eosinophils # (Auto) 0.2 K/uL (0.0-0.5) Basophils # (Auto) 0.1 K/uL (0.0-0.1) Nucleated RBC Absolute Count (auto) 0.01 K/uL Peripheral Blood Smear Y/N Glomerular Filtration Rate Calc > 60.0 Calcium Level 9.4 mg/dl (8.4-10.2) Total Bilirubin 0.4 mg/dl (0.2-1.3) Aspartate Amino Transf (AST/SGOT) 18 U/L (0-35) Alanine Aminotransferase (ALT/SGPT) 27 U/L (0-56) Alkaline Phosphatase 52 U/L (0-126) Total Protein 7.4 g/dl (6.3-8.2) Albumin 4.1 g/dl (3.5-5.0) Lipase 56 U/L (23-300) Urinalysis Test 01/28/18 16:04 Urine Color Yellow Urine Clarity Clear Urine pH 6.0 pH (4.8-9.5) Urine Specific [place] 1.023 Urine Protein Negative mg/dL (NEGATIVE) Urine Glucose (UA) Negative mg/dL (NEGATIVE) Urine Ketones Negative mg/dL (NEGATIVE) Urine Blood Negative (NEGATIVE) Urine Nitrite Negative (NEGATIVE) Urine Bilirubin Negative (NEGATIVE) Urine Urobilinogen Negative mg/dL (0.2-1.9) Urine Leukocyte Esterase Negative (NEGATIVE) Urine RBC None /HPF (0-2/HPF) Urine WBC <1 /HPF (0-5/HPF) Urine Squamous Epithelial Cells Many /LPF (</=FEW) Urine Bacteria Negative /HPF (NONE-FEW) Urine Mucus Few /HPF (NONE-FEW) ED Course/Re-evaluation Clinical Indication for ER IV: Hydration ED Course Will obtain labs. Patient was given 1 L normal saline bolus, 4 mg IV Zofran, 20 mg IV Pepcid. Patient is asking for pain medication. She was given 650 mg by mouth Tylenol. Discussed with patient that she needs is follow up with gastroenterology. Will give her referral to a surgeon here for an endoscopy. Patient was given Phenergan 12.5 mg IV and GI cocktail with some mild relief. Decision to Disposition Date: Jan 28, 2018 Decision to Disposition Time: 18:04 Depart Departure Latest Vital Signs Vital Signs Date Time Temp Pulse Resp B/P (MAP) Pulse Ox O2 Delivery O2 Flow Rate FiO2 01/28/18 20:01 101 16 123/85 (98) 96 Room Air 01/28/18 18:16 98.0 Impression: Primary Impression: Epigastric abdominal pain Condition: Improved Disposition: HOME OR SELF-CARE New Scripts Ondansetron (ZOFRAN ODT) 4 Mg Tab.rapdis 4 MG PO Q6H Y for NAUSEA/VOMITING, #12 TAB.BRITTANY Prov: LICO ESQUEDA PA-C 01/28/18 Patient Instructions: Abdominal Pain (ED), Gastritis (ED) Additional Instructions: Stay well-hydrated. Continue your Pepcid and Carafate at home. Follow-up with gastroenterology or Gen. surgery in 24 days. May take Zofran for nausea. Having any pain May take Tylenol. If having any worsening or concerning symptoms may return to the emergency department. LICO ESQUEDA PA-C Jan 28, 2018 18:05
[2018-01-28] MEDS ORDERED: PROMETHAZINE 25 MG/ML 1 ML AMP IVP ONE (18:40)
[2018-01-28] MEDS ORDERED: GI COCKTAIL 60 ML BTL PO PRN (19:20)
[2018-01-28] MEDS ORDERED: MAG HYD/AL HYD/SIMETH 30ML UDC PO ONE (19:25)
[2018-01-28] MEDS ORDERED: LIDOCAINE 2% VISC SLN 15ML UDC PO ONE (19:25)
[2018-01-28] MEDS ORDERED: ATRO/SCOPOL/HYOSCY/PB 5 ML ELX PO ONE (19:25)
[2018-01-28 20:01] VITALS: BP 123/85
== END 2018-01-28 20:02 | disposition home or self-care (01) ==
LOC: ER 16:02
DX: R10.13 Epigastric pain (principal)
CPT/HCPCS: 36415; 81001; 83690; 85025; 96365; 96366; 96375; 99284; J2405; J2550; J3490; J7030; 82040; 82247; 82310; 82374; 82435; 82565; 82947; 84075; 84132; 84155; 84295; 84450; 84460; 84520

== ENCOUNTER 2018-02-18 19:00 | Emergency (ER) | payer OTHER ==
[~2018-02-18 19:00] MED LIST changes: +OMEP-125 PO; +SUCR1TAB85 PO
--- NOTE | 2018-02-18 19:02 | ER Report ---
History and Physical Time Seen By MD: 19:02 HPI/ROS CHIEF COMPLAINT: Abdominal pain HISTORY OF PRESENT ILLNESS: 22-year-old female presents ambulatory to the ER complaining of lower abdominal pain and right flank pain since this morning. Patient is a long history of chronic low abdominal pain. She was seen here approximately 4 weeks ago and had a CT scan of her abdomen and pelvis which was unremarkable. Her diagnostic workup was unremarkable. She was advised to follow-up with her GI specialist. She was seen here 3 weeks ago for continued symptoms. She's also been seen in [facility]. Patient states she's of scoliosis followed up with GI. They're monitoring her GI bleed. Patient status post hysterectomy. Patient's primary complaint is being unable to urinate. She states she has to use a lot of pressure to get her urine to come out. She states she's drinking a normal amount of fluid. She notes no urinary burning or fever. REVIEW OF SYSTEMS: Respiratory: No cough, no dyspnea. Cardiovascular: No chest pain, no palpitations. Gastrointestinal: As above Musculoskeletal: As above Allergies: Coded Allergies: NSAIDS (Non-Steroidal Anti-Inflamma (Verified Allergy, Severe, "THROAT SWELLS UP", 02/18/18) egg (Verified Allergy, Severe, 02/18/18) influenza virus vaccine ts [id number] (36 mos,up) (Verified Allergy, Severe , "HIGH FEVER, SEIZURES", 02/18/18) ALL FLU VACINES, EGG ALLERGY banana (Verified Allergy, Intermediate, SWOLLEN TONGUE, 02/18/18) tramadol (Verified Allergy, Intermediate, RASH, 02/18/18) Home Meds Active Scripts Ondansetron Hcl (ZOFRAN) 4 Mg Tablet, 4 MG PO Q6H Y for NAUSEA/VOMITING, #10 Prov:KATHERINE DEAN DO 02/18/18 Dicyclomine Hcl (DICYCLOMINE HCL) 10 Mg Capsule, 1-2 CAP PO QID Y for crampy abdominal pain, #30 CAPSULE Prov:KATHERINE DEAN DO 02/18/18 Ondansetron (ZOFRAN ODT) 4 Mg Tab.rapdis, 4 MG PO Q6H Y for NAUSEA/VOMITING, # 12 TAB.BRITTANY Prov:LICO ESQUEDA PA-C 01/28/18 Ondansetron (ZOFRAN ODT) 4 Mg Tab.rapdis, 4 MG PO Q6H Y for NAUSEA/VOMITING for 5 Days, #20 TAB.BRITTANY Prov:ISACC RIVERA [facility] 01/20/18 Reported Medications Pantoprazole Sodium (PANTOPRAZOLE SODIUM) 40 Mg Tablet.dr, 40 MG PO BID, TAB.SR 02/18/18 Omeprazole (OMEPRAZOLE) 20 Mg Capsule.dr, 1 CAP PO BID, CAP 01/28/18 Sucralfate (CARAFATE) 1 Gm Tablet, 1 GM PO 6XD 01/28/18 Mycophenolate Mofetil (MYCOPHENOLATE MOFETIL) 500 Mg Tablet, 1000 MG PO BID 07/13/17 Divalproex Sodium (DEPAKOTE) 250 Mg Tablet.dr, 250 MG PO QAM, TAB 07/13/17 Divalproex Sodium (DEPAKOTE) 500 Mg Tablet.dr, 1000 MG PO QDAY, TAB 07/13/17 Fluoxetine Hcl (PROZAC) 20 Mg Capsule, 20 MG PO TID, CAPSULE 07/13/17 Risperidone (RISPERDAL) 0.5 Mg Tablet, 2 MG PO QDAY 07/13/17 Discontinued Scripts Hydrocodone Bit/Acetaminophen (HYDROCODON-ACETAMINOPHEN 5-325) 1 Each Tablet, 1 EACH PO Q4-6H Y for PAIN for 3 Days, #10 TAB Prov:ISACC RIVERA [facility] 01/20/18 Past Medical/Surgical History Rheumatoid arthritis on CellCept for immunosuppression, fibromyalgia, scoliosis , vaginal delivery, laparoscopic cholecystectomy, laparoscopic oophorectomy, transvaginal hysterectomy Reviewed Nurses Notes: Yes Old Medical Records Reviewed: Yes Hx Smoking: Yes Smoking Status: Current: Every Day Smoker Hx Substance Use Disorder: Yes Hx Alcohol Use: Yes Constitutional Vital Sign - Last 24 Hours 02/18/18 02/18/18 02/18/18 02/18/18 19:07 19:15 19:30 19:45 Temp 98.4 Pulse 110 111 114 116 Resp 16 B/P (MAP) 146/ Pulse Ox 95 96 98 97 O2 Delivery Room Air 02/18/18 20:00 Pulse ??? B/P (MAP) 128/94 (105) Physical Exam General Appearance: The patient is alert, has no immediate need for airway protection and no current signs of toxicity. No acute distress, vital signs stable, afebrile Eyes: Pupils equal and round no injection. Anicteric sclera Respiratory: Chest is non tender, lungs are clear to auscultation. Cardiac: regular rate and rhythm Gastrointestinal: Abdomen is soft. Mild left lower quadrant tenderness, no rebound or guarding, no masses, bowel sounds normal. No CVA tenderness Musculoskeletal: Neck: Neck is supple and non tender. Extremities have full range of motion and are non tender. Skin: No rashes or lesions. DIFFERENTIAL DIAGNOSIS: After history and physical exam differential diagnosis was considered for abdominal pain including but not limited to appendicitis, cholecystitis, gastritis, urinary retention and urinary tract infection. Medical Decision Making Data Points Result Diagram: 02/18/18192802/18/181928 Laboratory Hematology Test 02/18/18 19:29 Red Blood Count 6.00 M/uL (4.17-5.56) Mean Corpuscular Volume 72.5 fL (80.0-96.0) Mean Corpuscular Hemoglobin 24.2 pg (26.0-33.0) Mean Corpuscular Hemoglobin Concent 33.3 g/dL (32.0-36.0) Red Cell Distribution Width 18.2 % (11.5-14.5) Mean Platelet Volume 7.8 fL (7.2-11.1) Neutrophils (%) (Auto) 64.7 % (39.4-72.5) Lymphocytes (%) (Auto) 23.6 % (17.6-49.6) Monocytes (%) (Auto) 10.5 % (4.1-12.4) Eosinophils (%) (Auto) 0.8 % (0.4-6.7) Basophils (%) (Auto) 0.4 % (0.3-1.4) Nucleated RBC Relative Count (auto) 0.0 /100WBC Neutrophils # (Auto) 7.5 K/uL (2.0-7.4) Lymphocytes # (Auto) 2.7 K/uL (1.3-3.6) Monocytes # (Auto) 1.2 K/uL (0.3-1.0) Eosinophils # (Auto) 0.1 K/uL (0.0-0.5) Basophils # (Auto) 0.0 K/uL (0.0-0.1) Nucleated RBC Absolute Count (auto) 0.00 K/uL Prothrombin Time 13.6 seconds (12.0-14.4) Prothromb Time International Ratio 1.03 Activated Partial Thromboplast Time 29 seconds (23-35) Urine Color Yellow Urine Clarity Clear Urine pH 5.0 pH (4.8-9.5) Urine Specific [place] 1.029 Urine Protein Negative mg/dL (NEGATIVE) Urine Glucose (UA) Negative mg/dL (NEGATIVE) Urine Ketones Trace mg/dL (NEGATIVE) Urine Blood Negative (NEGATIVE) Urine Nitrite Negative (NEGATIVE) Urine Bilirubin Negative (NEGATIVE) Urine Urobilinogen 4.0 mg/dL (0.2-1.9) Urine Leukocyte Esterase Negative (NEGATIVE) Urine RBC <1 /HPF (0-2/HPF) Urine WBC 1 /HPF (0-5/HPF) Urine Squamous Epithelial Cells Few /LPF (</=FEW) Urine Bacteria Negative /HPF (NONE-FEW) Urine Mucus Few /HPF (NONE-FEW) Sodium Level 143 mmol/L (137-145) Potassium Level 3.7 mmol/L (3.5-5.0) Chloride Level 104 mmol/L (98-107) Carbon Dioxide Level 26 mmol/L (22-31) Blood Urea Nitrogen 11 mg/dl (7-18) Creatinine 1.00 mg/dl (0.52-1.04) Glomerular Filtration Rate Calc > 60.0 Random Glucose 102 mg/dl (75-110) Calcium Level 9.7 mg/dl (8.4-10.2) Total Bilirubin 0.3 mg/dl (0.2-1.3) Aspartate Amino Transf (AST/SGOT) 16 U/L (0-35) Alanine Aminotransferase (ALT/SGPT) 16 U/L (0-56) Alkaline Phosphatase 52 U/L (0-126) C-Reactive Protein 0.5 mg/dl (<1.0) Total Protein 7.4 g/dl (6.3-8.2) Albumin 4.4 g/dl (3.5-5.0) Amylase Level 55 U/L (0-110) Lipase 99 U/L (23-300) Chemistry Test 02/18/18 19:29 White Blood Count 11.6 k/uL (4.5-11.0) Red Blood Count 6.00 M/uL (4.17-5.56) Hemoglobin 14.5 g/dL (12.0-16.0) Hematocrit 43.5 % (34.0-47.0) Mean Corpuscular Volume 72.5 fL (80.0-96.0) Mean Corpuscular Hemoglobin 24.2 pg (26.0-33.0) Mean Corpuscular Hemoglobin Concent 33.3 g/dL (32.0-36.0) Red Cell Distribution Width 18.2 % (11.5-14.5) Platelet Count 239 K/uL (150-450) Mean Platelet Volume 7.8 fL (7.2-11.1) Neutrophils (%) (Auto) 64.7 % (39.4-72.5) Lymphocytes (%) (Auto) 23.6 % (17.6-49.6) Monocytes (%) (Auto) 10.5 % (4.1-12.4) Eosinophils (%) (Auto) 0.8 % (0.4-6.7) Basophils (%) (Auto) 0.4 % (0.3-1.4) Nucleated RBC Relative Count (auto) 0.0 /100WBC Neutrophils # (Auto) 7.5 K/uL (2.0-7.4) Lymphocytes # (Auto) 2.7 K/uL (1.3-3.6) Monocytes # (Auto) 1.2 K/uL (0.3-1.0) Eosinophils # (Auto) 0.1 K/uL (0.0-0.5) Basophils # (Auto) 0.0 K/uL (0.0-0.1) Nucleated RBC Absolute Count (auto) 0.00 K/uL Prothrombin Time 13.6 seconds (12.0-14.4) Prothromb Time International Ratio 1.03 Activated Partial Thromboplast Time 29 seconds (23-35) Urine Color Yellow Urine Clarity Clear Urine pH 5.0 pH (4.8-9.5) Urine Specific [place] 1.029 Urine Protein Negative mg/dL (NEGATIVE) Urine Glucose (UA) Negative mg/dL (NEGATIVE) Urine Ketones Trace mg/dL (NEGATIVE) Urine Blood Negative (NEGATIVE) Urine Nitrite Negative (NEGATIVE) Urine Bilirubin Negative (NEGATIVE) Urine Urobilinogen 4.0 mg/dL (0.2-1.9) Urine Leukocyte Esterase Negative (NEGATIVE) Urine RBC <1 /HPF (0-2/HPF) Urine WBC 1 /HPF (0-5/HPF) Urine Squamous Epithelial Cells Few /LPF (</=FEW) Urine Bacteria Negative /HPF (NONE-FEW) Urine Mucus Few /HPF (NONE-FEW) Glomerular Filtration Rate Calc > 60.0 Calcium Level 9.7 mg/dl (8.4-10.2) Total Bilirubin 0.3 mg/dl (0.2-1.3) Aspartate Amino Transf (AST/SGOT) 16 U/L (0-35) Alanine Aminotransferase (ALT/SGPT) 16 U/L (0-56) Alkaline Phosphatase 52 U/L (0-126) C-Reactive Protein 0.5 mg/dl (<1.0) Total Protein 7.4 g/dl (6.3-8.2) Albumin 4.4 g/dl (3.5-5.0) Amylase Level 55 U/L (0-110) Lipase 99 U/L (23-300) Coagulation Test 02/18/18 19:29 Prothrombin Time 13.6 seconds Prothromb Time International Ratio 1.03 Activated Partial Thromboplast Time 29 seconds Urinalysis Test 02/18/18 19:29 Urine Color Yellow Urine Clarity Clear Urine pH 5.0 pH (4.8-9.5) Urine Specific [place] 1.029 Urine Protein Negative mg/dL (NEGATIVE) Urine Glucose (UA) Negative mg/dL (NEGATIVE) Urine Ketones Trace mg/dL (NEGATIVE) Urine Blood Negative (NEGATIVE) Urine Nitrite Negative (NEGATIVE) Urine Bilirubin Negative (NEGATIVE) Urine Urobilinogen 4.0 mg/dL (0.2-1.9) Urine Leukocyte Esterase Negative (NEGATIVE) Urine RBC <1 /HPF (0-2/HPF) Urine WBC 1 /HPF (0-5/HPF) Urine Squamous Epithelial Cells Few /LPF (</=FEW) Urine Bacteria Negative /HPF (NONE-FEW) Urine Mucus Few /HPF (NONE-FEW) ED Course/Re-evaluation ED Course Patient was admitted to an examination room. H&P was done. The differential diagnoses was considered. On clinical examination. Patient has left lower quadrant abdominal pain. Urinalysis and test were unremarkable. Other diagnostic laboratory studies were unremarkable. Patient was medicated for her nausea and pain. A bladder scan was performed. Patient's volume was only 75 mL. She has no evidence of urinary retention. Patient advised to follow-up with her primary care doctor in [facility]. Patient was given dicyclomine and Zofran for symptom management. She is advised clear liquid diet. Decision to Disposition Date: Feb 18, 2018 Decision to Disposition Time: 19:57 Depart Departure Latest Vital Signs Vital Signs Date Time Temp Pulse Resp B/P (MAP) Pulse Ox O2 Delivery O2 Flow Rate FiO2 02/18/18 20:00 ??? 128/94 (105) 02/18/18 19:45 97 02/18/18 19:07 98.4 16 Room Air Impression: Primary Impression: Abdominal pain Additional Impression: Difficulty in urination Condition: Improved Disposition: HOME OR SELF-CARE New Scripts Ondansetron Hcl (ZOFRAN) 4 Mg Tablet 4 MG PO Q6H Y for NAUSEA/VOMITING, #10 Prov: KATHERINE DEAN DO 02/18/18 Dicyclomine Hcl (DICYCLOMINE HCL) 10 Mg Capsule 1-2 CAP PO QID Y for crampy abdominal pain, #30 CAPSULE Prov: KATHERINE DEAN DO 02/18/18 Patient Instructions: Abdominal Pain (ED) Additional Instructions: Follow-up with your primary care within one week Problem Qualifiers Primary Impression: Abdominal pain Abdominal location: left lower quadrant Qualified Codes: R10.32 - Left lower quadrant pain KATHERINE DEAN DO Feb 18, 2018 19:02
[2018-02-18] MEDS ORDERED: PANT40TA65 PO (19:14)
[2018-02-18 19:38] LABS: PLATELET COUNT, AUTOMATED 239 K/uL (150-450)
[2018-02-18] MEDS ORDERED: ONDANSETRON 4 MG ODT TABDP SL ONE (19:40)
[2018-02-18] MEDS ORDERED: DICYCLOMINE HCL 10 MG CAP PO ONE (19:40)
[2018-02-18] MEDS ORDERED: traMADol 50 MG TAB PO ONE (19:40)
[2018-02-18 19:50] LABS: INR 1.03
[2018-02-18 20:00] VITALS: BP 128/94
[2018-02-18] MEDS ORDERED: DICY10CA11 PO (20:00)
[2018-02-18] MEDS ORDERED: ONDA4TAB97 PO (20:00)
== END 2018-02-18 20:08 | disposition home or self-care (01) ==
LOC: ER 19:06
DX: R10.32 Left lower quadrant pain (principal); R33.9 Retention of urine, unspecified
CPT/HCPCS: 36415; 81001; 82150; 83690; 85025; 85610; 85730; 86140; 99283; S0119; 82040; 82247; 82310; 82374; 82435; 82565; 82947; 84075; 84132; 84155; 84295; 84450; 84460; 84520

== ENCOUNTER 2018-06-03 17:26 | Emergency (ER) | payer OTHER ==
[~2018-06-03 17:26] MED LIST changes: +DICY10CA11 PO; +ONDA4TAB97 PO; +PANT40TA65 PO
--- NOTE | 2018-06-03 17:38 | ER Report ---
History and Physical Time Seen By MD: 17:38 Hx. of Stated Complaint: c/o spotting and pelvic pain since yesterday, states she passed "something that looked like mucus plug," called her [facility] and they referred her here. Status post total hyst. HPI/ROS CHIEF COMPLAINT: Pelvic pain HISTORY OF PRESENT ILLNESS: 22-year-old female patient presents to emergency room with complaint of pelvic pain. Patient states that she has been having pain for the last 2 days. She states that she is also noticed some bleeding. She stat es that for the past month she has had pain with intercourse with her current partner. She denies having any fevers, chills, nausea, vomiting or diarrhea. Patient states that she touch base with her vamp maker today who recommended she come in for evaluation. She states that she passed blood as well as what appeared to be a mucous plug. Patient is one-year status post hysterectomy. REVIEW OF SYSTEMS: Respiratory: No cough, no dyspnea. Cardiovascular: No chest pain, no palpitations. Gastrointestinal: As noted above Musculoskeletal: No back pain. Allergies: Coded Allergies: NSAIDS (Non-Steroidal Anti-Inflamma (Verified Allergy, Severe, "THROAT SWELLS UP", 02/18/18) egg (Verified Allergy, Severe, 02/18/18) influenza virus vaccine ts [id number] (36 mos,up) (Verified Allergy, Severe, "HIGH FEVER, SEIZURES", 02/18/18) ALL FLU VACINES, EGG ALLERGY banana (Verified Allergy, Intermediate, SWOLLEN TONGUE, 02/18/18) gabapentin (Verified Allergy, Intermediate, SOMNOLENCE, 06/03/18) tramadol (Verified Allergy, Intermediate, RASH, 02/18/18) Home Meds Active Scripts Ondansetron (ZOFRAN ODT) 4 Mg Tab.rapdis, 4 MG PO Q6H PRN for NAUSEA/VOMITING, #20 TAB.BRITTANY Prov:ISACC RIVERA 06/03/18 Metronidazole (FLAGYL) 500 Mg Tablet, 500 MG PO BID, #12 TAB Prov:ISACC RIVERA 06/03/18 Reported Medications Pseudoephedrine Hcl (SUDAFED 12 HOUR) 120 Mg Tablet.er, 120 MG PO 06/03/18 Benzonatate 100 Mg Cap (TESSALON PERLE 100 MG CAP) 100 Mg Capsule, 100 MG PO TID, #15 CAP 06/03/18 Prazosin Hcl (MINIPRESS) 1 Mg Capsule, 1 MG PO DAILY, CAPSULE 06/03/18 Hydroxyzine Pamoate (VISTARIL) 50 Mg Capsule, 50 MG PO TID PRN for ANXIETY, CAPSULE 06/03/18 Sertraline Hcl (ZOLOFT) 100 Mg Tablet, 1 TAB PO QDAY, TAB 06/03/18 Risperidone (RISPERDAL) 0.5 Mg Tablet, 2 MG PO QDAY 07/13/17 Discontinued Reported Medications Pantoprazole Sodium (PANTOPRAZOLE SODIUM) 40 Mg Tablet.dr, 40 MG PO BID, TAB.SR 02/18/18 Omeprazole (OMEPRAZOLE) 20 Mg Capsule.dr, 1 CAP PO BID, CAP 01/28/18 Sucralfate (CARAFATE) 1 Gm Tablet, 1 GM PO 6XD 01/28/18 Mycophenolate Mofetil (MYCOPHENOLATE MOFETIL) 500 Mg Tablet, 1000 MG PO BID 07/13/17 Divalproex Sodium (DEPAKOTE) 250 Mg Tablet.dr, 250 MG PO QAM, TAB 07/13/17 Divalproex Sodium (DEPAKOTE) 500 Mg Tablet.dr, 1000 MG PO QDAY, TAB 07/13/17 Fluoxetine Hcl (PROZAC) 20 Mg Capsule, 20 MG PO TID, CAPSULE 07/13/17 Discontinued Scripts Ondansetron Hcl (ZOFRAN) 4 Mg Tablet, 4 MG PO Q6H PRN for NAUSEA/VOMITING, #10 Prov:KATHERINE DEAN DO 02/18/18 Dicyclomine Hcl (DICYCLOMINE HCL) 10 Mg Capsule, 1-2 CAP PO QID PRN for crampy abdominal pain, #30 CAPSULE Prov:KATHERINE DEAN DO 02/18/18 Ondansetron (ZOFRAN ODT) 4 Mg Tab.rapdis, 4 MG PO Q6H PRN for NAUSEA/VOMITING, #12 TAB.BRITTANY Prov:LICO ESQUEDA PA-C 01/28/18 Ondansetron (ZOFRAN ODT) 4 Mg Tab.rapdis, 4 MG PO Q6H PRN for NAUSEA/VOMITING for 5 Days, #20 TAB.BRITTANY Prov:ISACC RIVERA 01/20/18 Past Medical/Surgical History Patient has a past medical history of seizure, tachycardia, asthma, frequent UTI, seropositive rheumatoid disease, arthritis, fractures, substance abuse, alcohol abuse, depression, ADHD, bipolar. Patient has surgical history of cholecystectomy, hysterectomy, bilateral knee surgery, tonsillectomy. Reviewed Nurses Notes: Yes Hx Smoking: Yes Smoking Status: Current: Every Day Smoker Hx Substance Use Disorder: Yes Hx Alcohol Use: Yes Constitutional Vital Sign - Last 24 Hours 06/03/18 06/03/18 06/03/18 06/03/18 17:26 17:32 17:34 17:35 Temp 98.0 Pulse ??? 118 Resp 18 B/P (MAP) 131/111 (118) 127/83 (98) 127/83 Pulse Ox 96 O2 Delivery Room Air 06/03/18 06/03/18 06/03/18 06/03/18 17:41 17:56 18:05 18:07 Pulse 124 110 B/P (MAP) 118/78 (91) 118/75 (89) Pulse Ox 94 95 06/03/18 06/03/18 06/03/18 06/03/18 18:08 18:11 18:12 18:26 Pulse 107 113 106 110 124 B/P (MAP) 143/98 (113) 118/78 (91) 118/75 (89) 143/98 (113) Pulse Ox 96 94 06/03/18 06/03/18 06/03/18 06/03/18 18:41 18:46 18:56 19:11 Pulse 112 109 B/P (MAP) 148/110 (123) Pulse Ox 97 90 95 06/03/18 06/03/18 06/03/18 06/03/18 19:16 19:31 19:46 20:01 Pulse 103 100 102 102 Pulse Ox 95 92 94 94 06/03/18 20:06 Pulse 102 Pulse Ox 90 Physical Exam General Appearance: The patient is alert, has no immediate need for airway protection and no current signs of toxicity. ENT: Tympanic membranes are pearly-adhikari, auditory canals are patent, mucous membranes are moist. Respiratory: Chest is non tender, lungs are clear to auscultation. Cardiac: regular rate and rhythm Gastrointestinal: Abdomen is soft and tender in the bilateral lower quadrants, no masses, bowel sounds normal. Musculoskeletal: Neck: Neck is supple and non tender. Extremities have full range of motion and are non tender. Skin: No rashes or lesions. DIFFERENTIAL DIAGNOSIS: After history and physical exam differential diagnosis was considered for vaginal bleeding including but not limited to vaginal trauma, STI, inflammation. Medical Decision Making Data Points Result Diagram: 06/03/18180406/03/181804 Laboratory Hematology Test 06/03/18 17:42 06/03/18 18:05 06/03/18 18:16 Urine Color Straw Urine Clarity Clear Urine pH 6.0 pH (4.8-9.5) Urine Specific [place] 1.004 Urine Protein Negative mg/dL (NEGATIVE) Urine Glucose (UA) Negative mg/dL (NEGATIVE) Urine Ketones Negative mg/dL (NEGATIVE) Urine Blood Negative (NEGATIVE) Urine Nitrite Negative (NEGATIVE) Urine Bilirubin Negative (NEGATIVE) Urine Urobilinogen Negative mg/dL (0.2-1.9) Urine Leukocyte Esterase Small (NEGATIVE) Urine RBC <1 /HPF (0-2/HPF) Urine WBC 1 /HPF (0-5/HPF) Urine Squamous Epithelial Cells Many /LPF (</=FEW) Urine Bacteria Few /HPF (NONE-FEW) Urine Mucus None /HPF (NONE-FEW) Red Blood Count 6.54 M/uL (4.17-5.56) Mean Corpuscular Volume 71.3 fL (80.0-96.0) Mean Corpuscular Hemoglobin 23.4 pg (26.0-33.0) Mean Corpuscular Hemoglobin Concent 32.8 g/dL (32.0-36.0) Red Cell Distribution Width 15.6 % (11.5-14.5) Mean Platelet Volume 9.0 fL (7.2-11.1) Neutrophils (%) (Auto) 69.9 % (39.4-72.5) Lymphocytes (%) (Auto) 19.6 % (17.6-49.6) Monocytes (%) (Auto) 8.2 % (4.1-12.4) Eosinophils (%) (Auto) 1.9 % (0.4-6.7) Basophils (%) (Auto) 0.4 % (0.3-1.4) Nucleated RBC Relative Count (auto) 0.0 /100WBC Neutrophils # (Auto) 10.4 K/uL (2.0-7.4) Lymphocytes # (Auto) 2.9 K/uL (1.3-3.6) Monocytes # (Auto) 1.2 K/uL (0.3-1.0) Eosinophils # (Auto) 0.3 K/uL (0.0-0.5) Basophils # (Auto) 0.1 K/uL (0.0-0.1) Nucleated RBC Absolute Count (auto) 0.00 K/uL Peripheral Blood Smear No Y/N Prothrombin Time 13.0 seconds (12.0-14.4) Prothromb Time International Ratio 0.98 Activated Partial Thromboplast Time 31 seconds (23-35) Sodium Level 140 mmol/L (137-145) Potassium Level 3.9 mmol/L (3.5-5.0) Chloride Level 101 mmol/L (98-107) Carbon Dioxide Level 27 mmol/L (22-31) Blood Urea Nitrogen 11 mg/dl (7-18) Creatinine 0.80 mg/dl (0.52-1.04) Glomerular Filtration Rate Calc > 60.0 Random Glucose 99 mg/dl (75-110) Calcium Level 10.1 mg/dl (8.4-10.2) Total Bilirubin 0.2 mg/dl (0.2-1.3) Aspartate Amino Transf (AST/SGOT) 15 U/L (0-35) Alanine Aminotransferase (ALT/SGPT) 29 U/L (0-56) Alkaline Phosphatase 63 U/L (0-126) Total Protein 7.9 g/dl (6.3-8.2) Albumin 4.4 g/dl (3.5-5.0) Chemistry Test 06/03/18 17:42 06/03/18 18:05 06/03/18 18:16 Urine Color Straw Urine Clarity Clear Urine pH 6.0 pH (4.8-9.5) Urine Specific [place] 1.004 Urine Protein Negative mg/dL (NEGATIVE) Urine Glucose (UA) Negative mg/dL (NEGATIVE) Urine Ketones Negative mg/dL (NEGATIVE) Urine Blood Negative (NEGATIVE) Urine Nitrite Negative (NEGATIVE) Urine Bilirubin Negative (NEGATIVE) Urine Urobilinogen Negative mg/dL (0.2-1.9) Urine Leukocyte Esterase Small (NEGATIVE) Urine RBC <1 /HPF (0-2/HPF) Urine WBC 1 /HPF (0-5/HPF) Urine Squamous Epithelial Cells Many /LPF (</=FEW) Urine Bacteria Few /HPF (NONE-FEW) Urine Mucus None /HPF (NONE-FEW) White Blood Count 14.9 k/uL (4.5-11.0) Red Blood Count 6.54 M/uL (4.17-5.56) Hemoglobin 15.3 g/dL (12.0-16.0) Hematocrit 46.6 % (34.0-47.0) Mean Corpuscular Volume 71.3 fL (80.0-96.0) Mean Corpuscular Hemoglobin 23.4 pg (26.0-33.0) Mean Corpuscular Hemoglobin Concent 32.8 g/dL (32.0-36.0) Red Cell Distribution Width 15.6 % (11.5-14.5) Platelet Count 293 K/uL (150-450) Mean Platelet Volume 9.0 fL (7.2-11.1) Neutrophils (%) (Auto) 69.9 % (39.4-72.5) Lymphocytes (%) (Auto) 19.6 % (17.6-49.6) Monocytes (%) (Auto) 8.2 % (4.1-12.4) Eosinophils (%) (Auto) 1.9 % (0.4-6.7) Basophils (%) (Auto) 0.4 % (0.3-1.4) Nucleated RBC Relative Count (auto) 0.0 /100WBC Neutrophils # (Auto) 10.4 K/uL (2.0-7.4) Lymphocytes # (Auto) 2.9 K/uL (1.3-3.6) Monocytes # (Auto) 1.2 K/uL (0.3-1.0) Eosinophils # (Auto) 0.3 K/uL (0.0-0.5) Basophils # (Auto) 0.1 K/uL (0.0-0.1) Nucleated RBC Absolute Count (auto) 0.00 K/uL Peripheral Blood Smear No Y/N Prothrombin Time 13.0 seconds (12.0-14.4) Prothromb Time International Ratio 0.98 Activated Partial Thromboplast Time 31 seconds (23-35) Glomerular Filtration Rate Calc > 60.0 Calcium Level 10.1 mg/dl (8.4-10.2) Total Bilirubin 0.2 mg/dl (0.2-1.3) Aspartate Amino Transf (AST/SGOT) 15 U/L (0-35) Alanine Aminotransferase (ALT/SGPT) 29 U/L (0-56) Alkaline Phosphatase 63 U/L (0-126) Total Protein 7.9 g/dl (6.3-8.2) Albumin 4.4 g/dl (3.5-5.0) Coagulation Test 06/03/18 18:05 Prothrombin Time 13.0 seconds Prothromb Time International Ratio 0.98 Activated Partial Thromboplast Time 31 seconds Urinalysis Test 06/03/18 17:42 Urine Color Straw Urine Clarity Clear Urine pH 6.0 pH (4.8-9.5) Urine Specific [place] 1.004 Urine Protein Negative mg/dL (NEGATIVE) Urine Glucose (UA) Negative mg/dL (NEGATIVE) Urine Ketones Negative mg/dL (NEGATIVE) Urine Blood Negative (NEGATIVE) Urine Nitrite Negative (NEGATIVE) Urine Bilirubin Negative (NEGATIVE) Urine Urobilinogen Negative mg/dL (0.2-1.9) Urine Leukocyte Esterase Small (NEGATIVE) Urine RBC <1 /HPF (0-2/HPF) Urine WBC 1 /HPF (0-5/HPF) Urine Squamous Epithelial Cells Many /LPF (</=FEW) Urine Bacteria Few /HPF (NONE-FEW) Urine Mucus None /HPF (NONE-FEW) Microbiology Microbiology Date/Time Source Procedure Growth Status 06/03/18 18:16 Vaginal Wet Prep - Final Complete EKG/Imaging Imaging ABDOMEN/PELVIS WITH CONTRAST Additional pertinent History: Lower abdominal pain TECHNIQUE: Spiral scan was through the abdomen and pelvis during injection of nonionic iodinated intravenous contrast. Contrast: 95 mL of IV Isovue-370. One of the following dose optimization techniques was utilized in the performance of this exam: Automated exposure control; adjustment of the mA and/or kV according to the patient's size; or use of an iterative reconstruction technique. Specific details can be referenced in the facility's radiology CT exam operational policy. COMPARISON STUDIES: 01/20/2018. FINDINGS: Liver / biliary: No liver lesions. Status post cholecystectomy Pancreas: negative Spleen: negative Adrenal glands: negative Kidneys / retroperitoneum: negative Pelvic structures: Generalized symmetric wall thickening of the bladder.. Status post hysterectomy. Bowel / peritoneum / mesenteries: No colonic mass lesions. No bowel inflammation. Appendix normal with no appendicitis. Vessels: Negative Musculoskeletal / Body wall: Unilateral sacralization of L5 on the left. Lymph node assessment: negative Lower chest: negative IMPRESSION: 1. Negative CT scan of the abdomen/pelvis for acute pathology. Mildly uniform thickening of the bladder. Cystitis not excluded. Recommend clinical correlation. Report Dictated By: Davide Peoples MD at 06/03/2018 7:46 PM Report E-Signed By: Davide Peoples MD at 06/03/2018 8:10 PM ED Course/Re-evaluation ED Course Patient was admitted to an exam room, history and physical were obtained. Difficult diagnoses were considered. On examination lungs are clear, heart is regular, abdomen is soft and tender in the bilateral lower quadrants. Pain seems to worse on the left side. A pelvic exam was done as described below. A wet prep was collected. CBC, CMP, urinalysis were obtained. CBC showed a white count of 14,000, urinalysis was negative and CMP was unremarkable. Due to the elevated white count and abdominal pain a CT scan of abdomen and pelvis was done. The results were unremarkable. The wet prep did show many white blood cells as well as many clue cells. I physically the pain is secondary to a benign vaginosis. I discussed findings with patient. Patient did receive 2 doses of Zofran here as well as a dose of IV Tylenol for pain. Patient had improvement of her pain. Patient will be discharged home with a prescription of Zofran, Flagyl and receive a dose of Flagyl here in the emergency room as well as one for tomorrow. Discusses patient and her significant other and they verbalized understanding and agreement with plan. Decision to Disposition Date: Jun 03, 2018 Decision to Disposition Time: 20:49 Depart Departure Latest Vital Signs Vital Signs Date Time Temp Pulse Resp B/P (MAP) Pulse Ox O2 Delivery O2 Flow Rate FiO2 06/03/18 20:06 102 90 06/03/18 18:46 148/110 (123) 06/03/18 17:35 98.0 18 Room Air Impression: Primary Impression: Bacterial vaginosis Condition: Improved Disposition: HOME OR SELF-CARE New Scripts Ondansetron (ZOFRAN ODT) 4 Mg Tab.rapdis 4 MG PO Q6H PRN for NAUSEA/VOMITING, #20 TAB.BRITTANY Prov: ISACC RIVERA 06/03/18 Metronidazole (FLAGYL) 500 Mg Tablet 500 MG PO BID, #12 TAB Prov: ISACC RIVERAP 06/03/18 Patient Instructions: Bacterial Vaginosis (ED) Additional Instructions: Increase fluid intake. Get plenty of rest. Follow up with your vamp maker in the next week. Return to the ER if condition worsens. Limit activity by pain. Take the medication as directed. ISACC RIVERAP Jun 03, 2018 17:38
[2018-06-03] MEDS ORDERED: HYDR50CA47 PO (17:42)
[2018-06-03] MEDS ORDERED: PRAZ1CAP25 PO (17:42)
[2018-06-03] MEDS ORDERED: SERT-173 PO (17:42)
[2018-06-03] MEDS ORDERED: BENZ100C4 PO (17:42)
[2018-06-03] MEDS ORDERED: PSEU120T69 PO (17:42)
[2018-06-03 18:16] LABS: PLATELET COUNT, AUTOMATED 293 K/uL (150-450)
[2018-06-03 18:26] LABS: INR 0.98
[2018-06-03] MEDS ORDERED: ONDANSETRON 4 MG/2 ML VIAL IVP ONE ×2 (18:40→20:00)
[2018-06-03] MEDS ORDERED: IOPAMIDOL 76% 100 ML INFUS BTL 100 ML ONE (19:00)
--- NOTE | 2018-06-03 20:14 | RADIOLOGY IMAGING REPORT ---
FACILITY: [facility] - [place] PATIENT NAME: Roberta Akbar : 1995 MR: [id number] V: [id number] EXAM DATE: ORDERING PHYSICIAN: ISACC RIVERA TECHNOLOGIST: Location: [facility] Patient: Roberta Akbar : 1995 Visit/Account:[id number] Date of Sevice: 06/03/2018 ABDOMEN/PELVIS WITH CONTRAST Additional pertinent History: Lower abdominal pain TECHNIQUE: Spiral scan was through the abdomen and pelvis during injection of nonionic iodinated in travenous contrast. Contrast: 95 mL of IV Isovue-370. One of the following dose optimization techniques was utilized in the performance of this exam: Autom ated exposure control; adjustment of the mA and/or kV according to the patient's size; or use of an i terative reconstruction technique. Specific details can be referenced in the facility's radiology C T exam operational policy. COMPARISON STUDIES: 01/20/2018. FINDINGS: Liver / biliary: No liver lesions. Status post cholecystectomy Pancreas: negative Spleen: negative Adrenal glands: negative Kidneys / retroperitoneum: negative Pelvic structures: Generalized symmetric wall thickening of the bladder.. Status post hysterectom y. Bowel / peritoneum / mesenteries: No colonic mass lesions. No bowel inflammation. Appendix normal w ith no appendicitis. Vessels: Negative Musculoskeletal / Body wall: Unilateral sacralization of L5 on the left. Lymph node assessment: negative Lower chest: negative IMPRESSION: 1. Negative CT scan of the abdomen/pelvis for acute pathology. Mildly uniform thickening of the marlin dder. Cystitis not excluded. Recommend clinical correlation. Report Dictated By: Davide Peoples MD at 06/03/2018 7:46 PM Report E-Signed By: Davide Peoples MD at 06/03/2018 8:10 PM [id number]
[2018-06-03] MEDS ORDERED: ACETAMINOPHEN(*)1000 MG/100 ML 100 ML IVPB ONE (20:30)
[2018-06-03] MEDS ORDERED: METR-1 PO ×2 (20:51→20:52)
[2018-06-03] MEDS ORDERED: ONDA4TAB PO (20:54)
[2018-06-03] MEDS ORDERED: METRONIDAZOLE 500 MG TABLET PO ONE (20:55)
[2018-06-03 21:00] VITALS: BP 123/60
[2018-06-03] MEDS ORDERED: ONDANSETRON 4 MG ODT TH SL ONE (21:00)
== END 2018-06-03 21:17 | disposition home or self-care (01) ==
LOC: ER 17:52
DX: N76.0 Acute vaginitis (principal)
CPT/HCPCS: 74177; 81001; 85025; 85610; 85730; 87210; 87491; 87591; 96365; 96375; 96376; 99284; J0131; J2405; Q9967; S0119; 82040; 82247; 82310; 82374; 82435; 82565; 82947; 84075; 84132; 84155; 84295; 84450; 84460; 84520